=== PATIENT | male | born 1940 | race Caucasian/White ===

== ENCOUNTER → 2016-06-03 | Outpatient (CLI) | payer OTHER ==
[~2016-06-03] MED LIST: ALPPOPS5 OPL; ASPCH81X PO; BIMA0.01 OPL; DOFE500C PO; DXY100 PO; EYE INJECTION INJ; FLUT0.15 NAE; HYDR-5688 PO; MULT-190 PO; MULT60CA PO; OMEP40CA41 PO; SILD1TAB11 PO; SIMV20TA2 PO; TIMO0.2530 OPL
[2016-06-03 13:03] LABS: BASO % 0.4 %; BASO ABS # 0.03 K/uL (0-0.2); COMPLETE YES; EOS % 3.8 %; HEMATOCRIT 46.5 % (42-52); IG% 0.1 %; LYMPH % 28.2 %; LYMPH ABS # 2.39 K/uL (1.2-3.4); MEAN CELL VOLUME 89.4 fL (80-100); MEAN CORPUSCULAR HEMOGLOBIN 29.8 pg (25-34); MEAN CORPUSCULAR HGB CONC 33.3 g/dl (32-36); MONO % 11.4 %; NEUT % 56.1 %; PLATELET COUNT 254 K/uL (130-400); WHITE BLOOD COUNT 8.48 K/uL (4.8-10.8)
[2016-06-03 13:21] LABS: ALT/SGPT 21 U/L (12-78); AST/SGOT 13 U/L (15-37); BLOOD UREA NITROGEN 17 mg/dl (7-18); BUN/CREATININE RATIO 17.5 (10-20); CALCIUM 9.3 mg/dl (8.5-10.1); CARBON DIOXIDE 34 mmol/L (21-32); CHLORIDE 102 mmol/L (98-107); CREATININE 0.98 mg/dl (0.60-1.40); GLUCOSE 102 mg/dl (70-99); POTASSIUM 4.4 mmol/L (3.5-5.1); SODIUM 141 mmol/L (136-145)
[2016-06-03 13:24] LABS: ALB/GLOB RATIO 1.1 (0.9-2); ALKALINE PHOSPHATASE 60 U/L (45-117); CHOLESTEROL 169 mg/dl (0-200); CHOLESTEROL/HDL RATIO 3.4; HDL CHOLESTEROL 49 mg/dl; LDL CHOLESTEROL CALCULATED 94 mg/dl; TRIGLYCERIDES 129 mg/dl (0-150); VERY LOW DENSITY LIPOPROT CALC 26 mg/dl
== END | disposition home or self-care (01) ==
LOC: C.LABPVFM 07:57
PROVIDERS: ATTEND Family Medicine
DX: E78.5 Hyperlipidemia, unspecified (principal); I48.0 Paroxysmal atrial fibrillation

== ENCOUNTER → 2016-08-08 | Day surgery (SDC) | payer OTHER ==
[2016-07-28 08:08] VITALS: Ht 188 cm; Wt 93.2 kg
[~2016-08-08] VITALS: Ht 188 cm; Wt 93.2 kg
[~2016-08-08] MED LIST changes: +ATROPINE SULFATE 0.1 MG/ML 5ML SYR IV PRN; +BUPIVACAINE 0.5 % 5 MG/1 ML PF 10ML VIAL ONE; +CEFAZOLIN 2000 MG/60 ML D5W IV SCH; +DEXAMETHASONE SOD INJ 4 MG/ML VIAL ONE; -DXY100 PO; +FENTANYL CITRATE INJ 50 MCG/1 ML 2 ML VIAL IV PRN; +FENTANYL CITRATE INJ 50 MCG/1 ML 2 ML VIAL ONE; +LACTATED RINGER'S 1000ML 1,000 ML IV SCH; +LIDOCAINE HCL 1% 20 ML VIAL ONE; +LIDOCAINE HCL 2% 2 ML VIAL (20MG/ML) ONE; +MELO15TA4 PO; +MIDAZOLAM HCL 1 MG/ML 2ML VIAL ONE; -MULT-190 PO; +ONDANSETRON INJ 2 MG/ML 2 ML VIAL IV PRN; +ONDANSETRON INJ 2 MG/ML 2 ML VIAL ONE; +OXYCODONE/ACETAMINOPHEN 5-325 TAB PO PRN; +PROPOFOL IV EMULSION 10 MG/ML 20 ML VIAL IV ONE; -SILD1TAB11 PO; +SODIUM CHLORIDE 0.9% 1000ML 1,000 ML IV SCH; -TIMO0.2530 OPL; +TIMO4SOL2 OPL
--- NOTE | 2016-08-08 07:21 | History & Physical Bridge - [place] ---
H&P Re-Evaluation Bridge Note: I have examined the patient, reviewed the History & Physical and in the interval since the performance of the History & Physical I have noted the following changes of clinical significance: No changes noted
--- NOTE | 2016-08-08 08:33 | [facility] Post Operative Brief Note ---
Immediate Operative Summary Operative Date Aug 08, 2016. Pre-Operative Diagnosis Right Long Finger Trigger Finger Post-Operative Diagnosis Same Procedure(s) Performed Right Long Finger Trigger Finger Release Surgeon Dr. Daley Manager Of Data Surgeon(s) Stephen Buenrostro PA-C Estimated Blood Loss None Findings ABOVE Specimens None Anesthesia LOCAL IV SEDATION Complication(s) None Disposition
[2016-08-08 08:34] VITALS: TEMP 36.3
--- NOTE | 2016-08-08 08:37 | Discharge Instructions-SurgCtr ---
Discharge Instructions Date of Service Aug 08, 2016. Visit Reason for Visit: Triggering Of Digit, Right Long Finger Discharge Discharge Diagnosis / Problem: SAME ABOVE Discharge Goals Goal(s): Decrease discomfort, Improve function Activity Recommendations Activity Limitations: as noted below Lifting Limitations: gradually increase as tolerated Exercise/Sports Limitations: gradually increase as tolerated Shower/Bathe: may shower/bathe in 3 days Anesthesia . Post Anesthesia Instructions: If you have had General Anesthesia or IV Sedation: * Do not drive today. * Resume driving when surgeon permits. * Do not make important decisions or sign legal documents today. * Call surgeon for: 1. Temperature elevations greater than 101 degrees F. 2. Uncontrollable pain. 3. Excessive bleeding. 4. Persistent nausea and vomiting. 5. Medication intolerance (nausea, vomiting or rash). * For nausea and vomiting use only clear liquids such as: tea, soda, bouillon until nausea subsides, then gradually increase diet as tolerated. * If you have any concerns or questions, call your surgeon's office. If physician is unavailable and it is an emergency, call 911 or go to the nearest emergency room. . Instructions / Follow-Up Instructions / Follow-Up MEDICATIONS: * Resume previous medications unless instructed otherwise by your surgeon. * Always take pain medication on a full stomach or with food to avoid upset stomach. * Do not drink alcohol or drive while taking narcotics. * Ibuprofen or Tylenol may be taken if narcotic not needed. SPECIAL CARE INSTRUCTIONS: __ None _X_ Keep extremity elevated and iced x 48 hours; apply ice 20-30 minutes 8-10 times/day. May remove at night. __ Sling __24 hrs/day __ Remove at night __ Shoulder Immobilizer __ 24 hrs/day __ Remove at night _X_ Dressing __ Maintain until seen in office, may shower with plastic over site _X_ Remove dressings in 24-48 hours and then may shower _X_ Cover incisions with band-aids after showering __ Do not remove steri-strips Call physician if chills or temperature rises above 102 degrees or pain unrelieved by prescribed pain medications at . . Diet Recommendations Home Diet: resume previous diet Procedures Procedures Performed: Right Long Finger Trigger Finger Release Pending Studies Studies pending at discharge: no Medical Emergencies . Who to Call and When: Medical Emergencies: If at any time you feel your situation is an emergency, please call 911 immediately. . Non-Emergent Contact Non-Emergency issues call your: Primary Care Provider . . "Provider Documentation" section prepared by Masoud Buenrostro.
--- NOTE | 2016-08-08 08:55 | Anesthesia Progress Nt - [facility] ---
Anesthesia Post Op Note Date & Time Aug 08, 2016 at 08:54 Vital Signs Pain Intensity: 0 Vital Signs Past 12 Hours Date Time Temp Pulse Resp B/P Pulse Ox O2 Delivery O2 Flow Rate FiO2 08/08/16 08:34 36.3 49 16 105/68 97 Room Air 08/08/16 07:25 36.4 49 95 112/72 95 Room Air Notes Mental Status: alert / awake / arousable, participated in evaluation Pt Amnestic to Procedure: Yes Nausea / Vomiting: adequately controlled Pain: adequately controlled Airway Patency, RR, SpO2: stable & adequate BP & HR: stable & adequate Hydration State: stable & adequate Anesthetic Complications: no major complications apparent
[2016-08-08 09:03] VITALS: BP 107/66; PULSE 48; O2SAT 97
--- NOTE | 2016-08-08 10:46 | OPERATIVE REPORT ---
DATE OF OPERATION: 08/08/2016 PREOPERATIVE DIAGNOSIS: Right long trigger finger. POSTOPERATIVE DIAGNOSIS: Same. PROCEDURE: Release A1 fabiana, right long finger. SURGEON: Yonatan Daley MD SECURITY INCIDENT RESPONSE ENGINEER: Masoud Buenrostro PA-C ANESTHESIOLOGIST: Fabio Nash MD ANESTHESIA: Local with IV sedation. DRAINS: None. COMPLICATIONS: None. CONDITION: The patient tolerated the procedure well and returned to the recovery room in apparent satisfactory condition. INDICATIONS FOR SURGERY: Weston is a 76-year-old male who has had trigger fingering of multiple fingers, but his right long has been refractory to conservative care. He has had some injections there and elected to go ahead and proceed with surgery. Procedure, expected outcomes, side effects, and risks were all explained in detail. DESCRIPTION OF PROCEDURE: The patient was taken to the OR at which time he was placed supine on the operating table, given IV sedation. The right hand was prepped and draped in usual sterile fashion for surgery. We infiltrated the anticipated incision site with 1% Xylocaine and then we put a forearm tourniquet up to 250 mmHg. We made a transverse incision over the A1 fabiana, and with loupe magnification, we dissected down and divided the A1 fabiana. He had fluid in the fabiana system. The tendon was frayed some also. We irrigated this and the finger no longer triggering. The wound then was closed with interrupted 4-0 nylon sutures. Marcaine without epinephrine was placed in the skin edges, placed sterile dressing of Xeroform, 4 x 4, soft roll and Coban and returned to recovery in apparent satisfactory condition. I attest to the content of the Intraoperative Record and any orders documented therein. Any exceptions are noted below. MTDD
== END | disposition home or self-care (01) ==
LOC: X.SURG 07:05
PROVIDERS: ATTEND Orthopaedic Surgery
DX: M65.331 Trigger finger, right middle finger (principal); I48.91 Unspecified atrial fibrillation

== ENCOUNTER → 2016-09-22 | Outpatient (CLI) | payer OTHER ==
[~2016-09-22] MED LIST changes: -ATROPINE SULFATE 0.1 MG/ML 5ML SYR IV PRN; -BUPIVACAINE 0.5 % 5 MG/1 ML PF 10ML VIAL ONE; -CEFAZOLIN 2000 MG/60 ML D5W IV SCH; -DEXAMETHASONE SOD INJ 4 MG/ML VIAL ONE; -FENTANYL CITRATE INJ 50 MCG/1 ML 2 ML VIAL IV PRN; -FENTANYL CITRATE INJ 50 MCG/1 ML 2 ML VIAL ONE; -LACTATED RINGER'S 1000ML 1,000 ML IV SCH; -LIDOCAINE HCL 1% 20 ML VIAL ONE; -LIDOCAINE HCL 2% 2 ML VIAL (20MG/ML) ONE; -MIDAZOLAM HCL 1 MG/ML 2ML VIAL ONE; -ONDANSETRON INJ 2 MG/ML 2 ML VIAL IV PRN; -ONDANSETRON INJ 2 MG/ML 2 ML VIAL ONE; -OXYCODONE/ACETAMINOPHEN 5-325 TAB PO PRN; -PROPOFOL IV EMULSION 10 MG/ML 20 ML VIAL IV ONE; -SODIUM CHLORIDE 0.9% 1000ML 1,000 ML IV SCH
[2016-09-22 15:21] LABS: ALT/SGPT 23 U/L (12-78); AST/SGOT 17 U/L (15-37); BLOOD UREA NITROGEN 19 mg/dl (7-18); BUN/CREATININE RATIO 19.3 (10-20); CALCIUM 9.2 mg/dl (8.5-10.1); CARBON DIOXIDE 29 mmol/L (21-32); CHLORIDE 104 mmol/L (98-107); CREATININE 0.98 mg/dl (0.60-1.40); GLUCOSE 110 mg/dl (70-99); POTASSIUM 4.3 mmol/L (3.5-5.1); SODIUM 139 mmol/L (136-145); TRIGLYCERIDES 119 mg/dl (0-150); VERY LOW DENSITY LIPOPROT CALC 24 mg/dl
[2016-09-22 15:24] LABS: ALB/GLOB RATIO 1.2 (0.9-2); ALKALINE PHOSPHATASE 66 U/L (45-117); CHOLESTEROL 174 mg/dl (0-200); CHOLESTEROL/HDL RATIO 3.8; HDL CHOLESTEROL 46 mg/dl; LDL CHOLESTEROL CALCULATED 104 mg/dl
== END | disposition home or self-care (01) ==
LOC: C.LABPVFM 08:05
PROVIDERS: ATTEND Family Medicine
DX: I48.92 Unspecified atrial flutter (principal); E78.5 Hyperlipidemia, unspecified; R06.09 Other forms of dyspnea; M54.5 Low back pain; K22.70 Barrett's esophagus without dysplasia; I48.0 Paroxysmal atrial fibrillation

== ENCOUNTER → 2016-11-13 | Outpatient (CLI) | payer OTHER ==
[~2016-11-13] MED LIST changes: -FLUT0.15 NAE; -MELO15TA4 PO; +TIMO0.2530 OPL; -TIMO4SOL2 OPL
[2016-11-13 13:07] LABS: BLOOD UREA NITROGEN 21 mg/dl (7-18); BUN/CREATININE RATIO 23.1 (10-20); CALCIUM 9.2 mg/dl (8.5-10.1); CARBON DIOXIDE 29 mmol/L (21-32); CHLORIDE 106 mmol/L (98-107); CREATININE 0.92 mg/dl (0.60-1.40); GLUCOSE 97 mg/dl (70-99); POTASSIUM 4.1 mmol/L (3.5-5.1); SODIUM 141 mmol/L (136-145)
== END | disposition home or self-care (01) ==
LOC: C.LABPVFM 07:31
PROVIDERS: ATTEND Family Medicine
DX: Z01.818 Encounter for other preprocedural examination (principal)

== ENCOUNTER → 2017-04-17 | Day surgery (SDC) | payer OTHER ==
[2017-03-27 07:40] VITALS: Ht 188 cm; Wt 93.2 kg
[~2017-04-17] VITALS: Ht 188 cm; Wt 93.2 kg
[~2017-04-17] MED LIST changes: +500ML BSS 0.3ML EPI 1:1000PF IRRIG ONE; +ACETAMINOPHEN 325 MG TAB PO PRN; -ALPPOPS5 OPL; +AMVISC PLUS 0.8ML SYRINGE INT OCU ONE; +ATROPINE SULFATE 0.1 MG/ML 5ML SYR IV PRN; -BIMA0.01 OPL; +BSS FLUSH ONE; -EYE INJECTION INJ; +EpHEDrine SULFATE INJ 50 MG/ML AMP IV PRN; +EpINEphrine INJ 1MG/ML AMP 1 MG/ML AMP ONE; +FLUT0.15 NAE; -HYDR-5688 PO; +LACTATED RINGER'S 1000ML 500 ML IV SCH; +LIDOCAINE 3.5% OPH GEL PER APPLICATION CHARGE ONE; +LIDOCAINE HCL 1% MPF 2 ML VIAL ONE; +MELO15TA4 PO; +MIDAZOLAM HCL 1 MG/ML 2ML VIAL ONE; +OCUCOAT 1 ML SOLN IO ONE; +POVIDONE-IODINE OP SOLN 30 ML BTL ONE; +PROPARACAINE 0.5% OP SOLN PER DROP CHARGE OPL SCH; -TIMO0.2530 OPL; +TOBRAMYCIN/DEXAMETHASONE OPH OINT PER APPLN CHARGE ONE
[2017-04-17] MEDS: PHENYLEPHRINE HCL 2.5% OP SOLN PER DROP CHARGE OPL SCH ×2 (10:04→10:10)
[2017-04-17] MEDS: TROPICAMIDE 1% OP SOLN PER DROP CHARGE OPL SCH ×2 (10:05→10:11)
[2017-04-17] MEDS: CYCLOPENTOLATE HCL 1% OP SOLN PER DROP CHARGE OPL SCH ×2 (10:06→10:12)
[2017-04-17] MEDS: KETOROLAC 0.5% OP SOLN PER DROP CHARGE OPL SCH ×2 (10:07→10:13)
[2017-04-17] MEDS: GATIFLOXACIN OP SOLN PER DROP CHARGE OPL SCH ×2 (10:08→10:18)
--- NOTE | 2017-04-17 10:35 | History & Physical Bridge - [place] ---
H&P Re-Evaluation Bridge Note: I have examined the patient, reviewed the History & Physical and in the interval since the performance of the History & Physical I have noted the following changes of clinical significance: Diagnosis: Left Cataract Procedure: Left Cataract Removal with Lens Implant No changes noted
--- NOTE | 2017-04-17 11:09 | Discharge Instructions-SurgCtr ---
Discharge Instructions Date of Service Apr 17, 2017. Visit Reason for Visit: Cataract Left Eye Discharge Discharge Diagnosis / Problem: cataract Discharge Goals Goal(s): Improve function Activity Recommendations Activity Limitations: per Instructions/Follow-up section Anesthesia . Post Anesthesia Instructions: If you have had General Anesthesia or IV Sedation: * Do not drive today. * Resume driving when surgeon permits. * Do not make important decisions or sign legal documents today. * Call surgeon for: 1. Temperature elevations greater than 101 degrees F. 2. Uncontrollable pain. 3. Excessive bleeding. 4. Persistent nausea and vomiting. 5. Medication intolerance (nausea, vomiting or rash). * For nausea and vomiting use only clear liquids such as: tea, soda, bouillon until nausea subsides, then gradually increase diet as tolerated. * If you have any concerns or questions, call your surgeon's office. If physician is unavailable and it is an emergency, call 911 or go to the nearest emergency room. . Diet Recommendations Home Diet: resume previous diet Procedures Procedures Performed: Left Cataract Phacoemulsification With Intraocular Lens Implant Pending Studies Studies pending at discharge: no Medical Emergencies . Who to Call and When: Medical Emergencies: If at any time you feel your situation is an emergency, please call 911 immediately. . Non-Emergent Contact Non-Emergency issues call your: Fuel Handler . . "Provider Documentation" section prepared by Colt Salgado. .
--- NOTE | 2017-04-17 11:10 | [facility] Operative Report ---
Operative Report Date of Service Apr 17, 2017. Operative Report 1. PREOPERATIVE DIAGNOSIS: Cataract of the left eye. 2. POSTOPERATIVE DIAGNOSIS: Same. 3. PROCEDURE: Phacoemulsification with intraocular lens implantation of the left eye. SURGEON: Dr. Colt Salgado. ANESTHESIA: Topical Lidocaine gel, 1% Non- Preserved intracameral Lidocaine, and monitored intravenous sedation. INDICATIONS FOR THE PROCEDURE: The patient is a 76 - year-old male with a history of cataract of the left eye causing significant visual impairment. The details of the proposed procedure were explained to the patient who asked appropriate questions and following discussion of all risks, benefits and alternatives agreed to have the procedure done. 4. OPERATION AND FINDINGS: DESCRIPTION OF PROCEDURE: After informed consent was obtained, the patient was brought to the Operating Room at the [facility]. The patient was placed in a supine position and then the left eye was prepped and draped in the usual sterile fashion for intraocular surgery. A drop of topical Lidocaine gel was placed in the operative eye. A wire lid speculum was then placed in the fornices. A corneal paracentesis was then created temporally. The Non-Preserved Lidocaine was then instilled into the anterior chamber. The anterior chamber was then pressurized with viscoelastic. A 2.0 mm clear corneal incision was then created temporally. A cystotome was inserted into the anterior chamber and used to create a tear in the anterior lens capsule. This capsular tear was then used to create a small flap and the flap was dragged in a counterclockwise direction in order to create a continuous curvilinear capsulorrhexis. Hydrodissection was accomplished with balanced salt solution. Phacoemulsification of the lens nucleus was then performed in a standard [id number] technique. The phaco time was 39 seconds with an average power of 16 %. The remaining cortical material was removed using irrigation aspiration. The capsular bag was then filled with viscoelastic. A Bausch [employer] Lomb MX60 +18.5 diopters lens was then loaded into the injector and injected into the capsular bag. The remaining viscoelastic was removed with the irrigation aspiration handpiece. The wound was hydrated and then checked and found to be watertight. The intraocular pressure was checked and found to be adequate. The wire lid speculum was removed and the patient's face was cleaned and dried. TobraDex ointment was placed in the inferior fornix. The patient was discharged to the Recovery Room having tolerated the procedure well. There were no complications. The patient will be seen tomorrow in the office for follow-up. I attest to the content of the Intraoperative Record and any orders documented therein. Any exceptions are noted below.
[2017-04-17 11:14] VITALS: TEMP 36.5
--- NOTE | 2017-04-17 11:19 | Anesthesiology Progress Note ---
Anesthesia Post Op Note Date & Time Apr 17, 2017 at 11:18 Vital Signs Pain Intensity: 0 Vital Signs Past 12 Hours Date Time Temp Pulse Resp B/P (MAP) Pulse Ox O2 Delivery O2 Flow Rate FiO2 04/17/17 11:14 36.5 46 16 109/71 (84) 97 Room Air 04/17/17 09:57 36.2 57 16 127/72 (90) 95 Room Air Notes Mental Status: alert / awake / arousable, participated in evaluation Nausea / Vomiting: adequately controlled Pain: adequately controlled Airway Patency, RR, SpO2: stable & adequate BP & HR: stable & adequate Hydration State: stable & adequate Anesthetic Complications: no major complications apparent
[2017-04-17 11:34] VITALS: BP 110/70; PULSE 53; O2SAT 96
== END | disposition home or self-care (01) ==
LOC: X.SURG 09:36
PROVIDERS: ATTEND Ophthalmology
DX: H26.9 Unspecified cataract (principal); E78.5 Hyperlipidemia, unspecified; I48.0 Paroxysmal atrial fibrillation; I48.92 Unspecified atrial flutter; K21.0 Gastro-esophageal reflux disease with esophagitis; Z79.82 Long term (current) use of aspirin; Z79.899 Other long term (current) drug therapy

== ENCOUNTER → 2017-04-20 | Outpatient (CLI) | payer OTHER ==
[~2017-04-20] MED LIST changes: -500ML BSS 0.3ML EPI 1:1000PF IRRIG ONE; -ACETAMINOPHEN 325 MG TAB PO PRN; -AMVISC PLUS 0.8ML SYRINGE INT OCU ONE; -ATROPINE SULFATE 0.1 MG/ML 5ML SYR IV PRN; -BSS FLUSH ONE; -EpHEDrine SULFATE INJ 50 MG/ML AMP IV PRN; -EpINEphrine INJ 1MG/ML AMP 1 MG/ML AMP ONE; -LACTATED RINGER'S 1000ML 500 ML IV SCH; -LIDOCAINE 3.5% OPH GEL PER APPLICATION CHARGE ONE; -LIDOCAINE HCL 1% MPF 2 ML VIAL ONE; -MIDAZOLAM HCL 1 MG/ML 2ML VIAL ONE; -OCUCOAT 1 ML SOLN IO ONE; -POVIDONE-IODINE OP SOLN 30 ML BTL ONE; -PROPARACAINE 0.5% OP SOLN PER DROP CHARGE OPL SCH; -TOBRAMYCIN/DEXAMETHASONE OPH OINT PER APPLN CHARGE ONE
--- NOTE | 2017-04-20 15:38 | DIAGNOSTIC IMAGING REPORT ---
CERVICAL SPINE 2 OR 3 VIEWS HISTORY: Pain Cervicalgia COMPARISON: None. FINDINGS: Moderate reversal of the normal cervical curvature. No evidence for compression deformity. Degenerative disc change most prominent at C5-C6. No evidence for compression deformity. C1-C2 complex is intact. Prevertebral soft tissues are unremarkable. There is no fracture. No subluxation. Prevertebral soft tissues and the atlantodens interval are intact. IMPRESSION: No acute process. Moderate degenerative change. Muscle spasm. The above report was generated using voice recognition software. It may contain grammatical, syntax or spelling errors. Electronically signed by: Darci Enriquez M.D. 04/20/2017 3:36 PM Dictated Date/Time: 04/20/2017 3:35 PM
== END | disposition home or self-care (01) ==
LOC: C.RADPV 15:13
PROVIDERS: ATTEND Family Medicine Adult Medicine
DX: M54.2 Cervicalgia (principal)

== ENCOUNTER → 2017-05-15 | Day surgery (SDC) | payer OTHER ==
[2017-04-26 13:21] VITALS: Ht 188 cm; Wt 93.2 kg
[~2017-05-15] VITALS: Ht 188 cm; Wt 93.2 kg
[~2017-05-15] MED LIST changes: +500ML BSS 0.3ML EPI 1:1000PF IRRIG ONE; +ACETAMINOPHEN 325 MG TAB PO PRN; +AMVISC PLUS 0.8ML SYRINGE INT OCU ONE; +ATROPINE SULFATE 0.1 MG/ML 5ML SYR IV PRN; +BSS FLUSH ONE; +EpHEDrine SULFATE INJ 50 MG/ML AMP IV PRN; +EpINEphrine INJ 1MG/ML AMP 1 MG/ML AMP ONE; +LACTATED RINGER'S 1000ML 500 ML IV SCH; +LIDOCAINE 3.5% OPH GEL PER APPLICATION CHARGE ONE; +LIDOCAINE HCL 1% MPF 2 ML VIAL ONE; +MELO-84 PO; -MELO15TA4 PO; +MIDAZOLAM HCL 1 MG/ML 2ML VIAL ONE; +OCUCOAT 1 ML SOLN IO ONE; +POVIDONE-IODINE OP SOLN 30 ML BTL ONE; +PROPARACAINE 0.5% OP SOLN PER DROP CHARGE OPR SCH; +PSYL48.59; +TOBRAMYCIN/DEXAMETHASONE OPH OINT PER APPLN CHARGE ONE
[2017-05-15] MEDS: PHENYLEPHRINE HCL 2.5% OP SOLN PER DROP CHARGE OPR SCH ×2 (09:03→09:08)
[2017-05-15] MEDS: TROPICAMIDE 1% OP SOLN PER DROP CHARGE OPR SCH ×2 (09:04→09:09)
[2017-05-15] MEDS: CYCLOPENTOLATE HCL 1% OP SOLN PER DROP CHARGE OPR SCH ×2 (09:05→09:10)
[2017-05-15] MEDS: KETOROLAC 0.5% OP SOLN PER DROP CHARGE OPR SCH ×2 (09:06→09:11)
[2017-05-15] MEDS: GATIFLOXACIN OP SOLN PER DROP CHARGE OPR SCH ×2 (09:07→09:17)
--- NOTE | 2017-05-15 10:11 | Discharge Instructions-SurgCtr ---
Discharge Instructions Date of Service May 15, 2017. Visit Reason for Visit: Right Cataract Discharge Discharge Diagnosis / Problem: cataract Discharge Goals Goal(s): Improve function Activity Recommendations Activity Limitations: per Instructions/Follow-up section Anesthesia . Post Anesthesia Instructions: If you have had General Anesthesia or IV Sedation: * Do not drive today. * Resume driving when surgeon permits. * Do not make important decisions or sign legal documents today. * Call surgeon for: 1. Temperature elevations greater than 101 degrees F. 2. Uncontrollable pain. 3. Excessive bleeding. 4. Persistent nausea and vomiting. 5. Medication intolerance (nausea, vomiting or rash). * For nausea and vomiting use only clear liquids such as: tea, soda, bouillon until nausea subsides, then gradually increase diet as tolerated. * If you have any concerns or questions, call your surgeon's office. If physician is unavailable and it is an emergency, call 911 or go to the nearest emergency room. . Diet Recommendations Home Diet: resume previous diet Procedures Procedures Performed: Right Cataract Phacoemulsification With Intraocular Lens Implant Pending Studies Studies pending at discharge: no Medical Emergencies . Who to Call and When: Medical Emergencies: If at any time you feel your situation is an emergency, please call 911 immediately. . Non-Emergent Contact Non-Emergency issues call your: Supply Teacher . . "Provider Documentation" section prepared by Colt Salgado. .
--- NOTE | 2017-05-15 10:12 | [facility] Operative Report ---
Operative Report Date of Service May 15, 2017. Operative Report 1. PREOPERATIVE DIAGNOSIS: Cataract of the right eye. 2. POSTOPERATIVE DIAGNOSIS: Same. 3. PROCEDURE: Phacoemulsification with intraocular lens implantation of the right eye. SURGEON: Dr. Colt Salgado. ANESTHESIA: Topical Lidocaine gel, 1% Non- Preserved intracameral Lidocaine, and monitored intravenous sedation. INDICATIONS FOR THE PROCEDURE: The patient is a 76 - year-old male with a history of cataract of the right eye causing significant visual impairment. The details of the proposed procedure were explained to the patient who asked appropriate questions and following discussion of all risks, benefits and alternatives agreed to have the procedure done. 4. OPERATION AND FINDINGS: DESCRIPTION OF PROCEDURE: After informed consent was obtained, the patient was brought to the Operating Room at the [facility]. The patient was placed in a supine position and then the right eye was prepped and draped in the usual sterile fashion for intraocular surgery. A drop of topical Lidocaine gel was placed in the operative eye. A wire lid speculum was then placed in the fornices. A corneal paracentesis was then created temporally. The Non-Preserved Lidocaine was then instilled into the anterior chamber. The anterior chamber was then pressurized with viscoelastic. A 2.0 mm clear corneal incision was then created temporally. A cystotome was inserted into the anterior chamber and used to create a tear in the anterior lens capsule. This capsular tear was then used to create a small flap and the flap was dragged in a counterclockwise direction in order to create a continuous curvilinear capsulorrhexis. Hydrodissection was accomplished with balanced salt solution. Phacoemulsification of the lens nucleus was then performed in a standard urjeva-uan-[id number] technique. The phaco time was 27 seconds with an average power of 12 %. The remaining cortical material was removed using irrigation aspiration. The capsular bag was then filled with viscoelastic. A Bausch & Lomb MX60 +18.5 diopters lens was then loaded into the injector and injected into the capsular bag. The remaining viscoelastic was removed with the irrigation aspiration handpiece. The wound was hydrated and then checked and found to be watertight. The intraocular pressure was checked and found to be adequate. The wire lid speculum was removed and the patient's face was cleaned and dried. TobraDex ointment was placed in the inferior fornix. The patient was discharged to the Recovery Room having tolerated the procedure well. There were no complications. The patient will be seen tomorrow in the office for follow-up. I attest to the content of the Intraoperative Record and any orders documented therein. Any exceptions are noted below.
--- NOTE | 2017-05-15 10:23 | Anesthesiology Progress Note ---
Anesthesia Post Op Note Date & Time May 15, 2017 at 10:23 Vital Signs Pain Intensity: 0 Vital Signs Past 12 Hours Date Time Temp Pulse Resp B/P (MAP) Pulse Ox O2 Delivery O2 Flow Rate FiO2 05/15/17 10:15 36.5 45 16 112/69 (83) 96 Room Air 05/15/17 08:53 36.5 54 16 124/74 (91) 99 Room Air Notes Mental Status: alert / awake / arousable, participated in evaluation Nausea / Vomiting: adequately controlled Pain: adequately controlled Airway Patency, RR, SpO2: stable & adequate BP & HR: stable & adequate Hydration State: stable & adequate Anesthetic Complications: no major complications apparent
[2017-05-15 10:41] VITALS: BP 120/73; PULSE 48; TEMP 36.5; O2SAT 96
== END | disposition home or self-care (01) ==
LOC: X.SURG 08:43
PROVIDERS: ATTEND Ophthalmology
DX: H26.9 Unspecified cataract (principal); E78.5 Hyperlipidemia, unspecified; Z79.82 Long term (current) use of aspirin; Z90.79 Acquired absence of other genital organ(s); Z90.89 Acquired absence of other organs; Z98.42 Cataract extraction status, left eye; K22.70 Barrett's esophagus without dysplasia; Z85.46 Personal history of malignant neoplasm of prostate

== ENCOUNTER → 2017-05-18 | Outpatient (CLI) | payer OTHER ==
[~2017-05-18] MED LIST changes: -500ML BSS 0.3ML EPI 1:1000PF IRRIG ONE; -ACETAMINOPHEN 325 MG TAB PO PRN; -AMVISC PLUS 0.8ML SYRINGE INT OCU ONE; -ATROPINE SULFATE 0.1 MG/ML 5ML SYR IV PRN; -BSS FLUSH ONE; -EpHEDrine SULFATE INJ 50 MG/ML AMP IV PRN; -EpINEphrine INJ 1MG/ML AMP 1 MG/ML AMP ONE; -LACTATED RINGER'S 1000ML 500 ML IV SCH; -LIDOCAINE 3.5% OPH GEL PER APPLICATION CHARGE ONE; -LIDOCAINE HCL 1% MPF 2 ML VIAL ONE; -MELO-84 PO; +MELO15TA4 PO; -MIDAZOLAM HCL 1 MG/ML 2ML VIAL ONE; -OCUCOAT 1 ML SOLN IO ONE; -POVIDONE-IODINE OP SOLN 30 ML BTL ONE; -PROPARACAINE 0.5% OP SOLN PER DROP CHARGE OPR SCH; -PSYL48.59; -TOBRAMYCIN/DEXAMETHASONE OPH OINT PER APPLN CHARGE ONE
[2017-05-18 13:08] LABS: ALBUMIN 3.8 gm/dl (3.4-5.0); ALT/SGPT 23 U/L (12-78); AST/SGOT 15 U/L (15-37); BLOOD UREA NITROGEN 20 mg/dl (7-18); CALCIUM 9.3 mg/dl (8.5-10.1); CARBON DIOXIDE 32 mmol/L (21-32); CREATININE 0.97 mg/dl (0.60-1.40); GLUCOSE 100 mg/dl (70-99); POTASSIUM 4.1 mmol/L (3.5-5.1); SODIUM 138 mmol/L (136-145)
[2017-05-18 13:12] LABS: ALKALINE PHOSPHATASE 59 U/L (45-117); CHOLESTEROL 165 mg/dl (0-200); LDL CHOLESTEROL CALCULATED 91 mg/dl; TOTAL PROTEIN 7.6 gm/dl (6.4-8.2)
== END | disposition home or self-care (01) ==
LOC: C.LABPVFM 07:44
PROVIDERS: ATTEND Family Medicine
DX: I48.0 Paroxysmal atrial fibrillation (principal); E78.5 Hyperlipidemia, unspecified; K21.0 Gastro-esophageal reflux disease with esophagitis; R73.01 Impaired fasting glucose

== ENCOUNTER → 2017-07-16 | Outpatient (CLI) | payer OTHER ==
[~2017-07-16] MED LIST changes: +MELO-84 PO; -MELO15TA4 PO
--- NOTE | 2017-07-16 10:37 | DIAGNOSTIC IMAGING REPORT ---
R SHOULDER MIN 2 VIEWS ROUTINE CLINICAL HISTORY: RIGHT SHOULDER INJURY PAIN COMPARISON: None. DISCUSSION: No acute proximal humeral fractures or dislocations are visualized. There is age-indeterminate irregularity the inferior scapular glenoid. IMPRESSION: 1. No proximal humeral fractures or dislocations identified 2. Age-indeterminate irregularity of the inferior scapular glenoid Electronically signed by: Victor Manuel Montes M.D. 07/16/2017 10:35 AM Dictated Date/Time: 07/16/2017 10:34 AM
== END | disposition home or self-care (01) ==
LOC: C.RADPV 10:20
PROVIDERS: ATTEND Family Medicine
DX: S49.91XA Unspecified injury of right shoulder and upper arm, initial encounter (principal); X58.XXXA Exposure to other specified factors, initial encounter

== ENCOUNTER → 2017-09-05 | Outpatient (CLI) | payer OTHER ==
[~2017-09-05] MED LIST changes: +GADAVIST IV PRN; -MELO-84 PO
--- NOTE | 2017-09-05 11:43 | DIAGNOSTIC IMAGING REPORT ---
ORBIT RADIOGRAPHS 3 VIEWS HISTORY: pre-MRI screening. COMPARISON: None. FINDINGS: There are no radiopaque foreign bodies identified within the orbits. IMPRESSION: No radiopaque foreign bodies identified within the orbits. Electronically signed by: Doug Nassar M.D. 09/05/2017 11:41 AM Dictated Date/Time: 09/05/2017 11:40 AM
--- NOTE | 2017-09-05 15:27 | DIAGNOSTIC IMAGING REPORT ---
PROSTATE MRI COMBO CLINICAL HISTORY: 77 years-old Male presenting with rising PSA status post prostatectomy.. TECHNIQUE: Multisequence, multiplanar MR imaging of the prostate was performed before and after the administration of intravenous contrast. Additional postprocessing was performed on a separate [employer] workstation. The patient was administered 9.5 cc of intravenous Gadavist. COMPARISON: None. FINDINGS: The patient is status post a prior prostatectomy. There is an 9 mm nodular asymmetry at the vesicourethral anastomosis, posteriorly. This demonstrates increased signal on diffusion-weighted images, but there is no corresponding area of diminished signal on the ADC map. . There is equivocal slight hypervascularity on the dynamic contrast enhanced images. Bladder: The bladder is trabeculated with several bladder diverticula. Bowel: There is colonic diverticulosis. Peritoneum: No free fluid in the pelvis. Lymph nodes: No lymphadenopathy in the visualized portion of the pelvis. Vasculature: Iliac vessels patent. Abdominal wall: Normal. Osseous structures: Normal bone marrow signal intensity. IMPRESSION: 1. Postsurgical changes of a prior prostatectomy 2. Indeterminate 9 mm nodular asymmetry of the vesicourethral anastomosis posteriorly. There is equivocal slight hypervascularity in the dynamic contrast-enhanced images. Although this area demonstrates increased signal on diffusion-weighted images, there is no corresponding area of diminished signal on the ADC map. 3. No evidence of pathologic adenopathy 4. No evidence of pathologic marrow replacement 5. Diverticulosis 6. Trabeculated bladder with bladder diverticula Electronically signed by: Victor Manuel Montes M.D. 09/05/2017 3:25 PM Dictated Date/Time: 09/05/2017 1:16 PM
== END | disposition home or self-care (01) ==
LOC: C.MRIBC 10:59
PROVIDERS: ATTEND Radiology Radiation Oncology
DX: C61 Malignant neoplasm of prostate (principal); K57.90 Diverticulosis of intestine, part unspecified, without perforation or abscess without bleeding; N32.89 Other specified disorders of bladder

== ENCOUNTER → 2017-12-07 | Outpatient (CLI) | payer OTHER ==
[~2017-12-07] MED LIST changes: -GADAVIST IV PRN; +PSYL48.59
== END | disposition home or self-care (01) ==
LOC: C.LAB1850 14:02
PROVIDERS: ATTEND Radiology Radiation Oncology
DX: C61 Malignant neoplasm of prostate (principal)

== ENCOUNTER → 2017-12-11 | Outpatient (CLI) | payer OTHER ==
[2017-12-11 14:46] VITALS: BP 114/69; PULSE 59; TEMP 36.4; O2SAT 96
--- NOTE | 2017-12-11 15:39 | Radiation Oncology Follow-Up ---
Radiation Oncology Follow-Up Date of Visit Dec 11, 2017. Reason For Visit One-month follow-up and cancer survivorship care plan Radiation Completion Date 11/08/17 Diagnosis (1) Prostate cancer Status: Resolved Onset Date: 11/04/2012 Location: Both lobes of the prostate Histology Subtype: Adenocarcinoma Permanent Comment: DIAGNOSIS: Prostate, adenocarcinoma, Status post radical prostatectomy July 02, 1996 Joan 3 + 4, [id number], group IIA positive anterior urethral margin, perineural invasion present Rise in PSA to 0.937, Initially seen in consultation August 31, 2015 Patient did not purse radiation Continue rising PSA PSA July 25, 2017 at 4.59 Hormone suppression was not given Status post completion of radiation therapy November 08, 2017. He received 7560 cGy utilizing volumetric modulated radiation therapy. Last Edited By: Marcela Bryant on Nov 16, 2017 12:53 History of Present Illness Mr. Hoffmann was initially diagnosed with prostate cancer in 1996. The patient underwent a biopsy of the prostate gland which revealed [place] 3+4 disease in the right base. The patient subsequently underwent a radical prostatectomy on 07/02/1996 which revealed prostate adenocarcinoma Joan 3+4. There was no evidence of any seminal vesicle invasion or extraprostatic extension however the pathology report did mention a positive anterior urethral margin as well as perineural invasion. Both obturator lymph nodes that were resected bilaterally were negative. The patient did relatively well following surgery and was able to regain incontinence. He did undergo follow-up PSAs and was initially undetectable however the PSA did begin to rise in 2003 to 0.13. The PSA did continue to rise and the most recent PSA was 0.937 today. Previously, the PSA was 0.927 on 06/15/2015. The patient is currently asymptomatic. Dr. Kebede is following the patient and has so far recommended observation. She did recommend a discussion for consideration of salvage radiation therapy. Patient was initially seen on August 31, 2015. He had a rise in PSA. Treatment of salvage radiation was discussed. He made the decision to continue with active surveillance and recheck PSAs. On August 31, 2015 PSA had been found to be 0.937. On February 03, 2016 the PSA was 1.12. PSA August 03, 2016 was 1.41. PSA on July 18, 2017 was 4.62. This was repeated July 25, 2017 and the results were 4.59. With these findings the patient was advised to follow-up with radiation oncology. He feels that his urinary status is stable. He gave an AUA score of 10. He had a CT of the abdomen and pelvis as well as bone scan as part of his follow-up. There is no evidence of metastatic disease. He had additional plain films to review areas seen on the bone scan and those showed no obvious metastatic disease. With the continued rise in PSA the patient made a decision to go forward with salvage radiation therapy. He completed radiation therapy November 08, 2017. He received 7560 cGy utilizing volumetric modulated radiation therapy. Interim History He has been doing well over the past month. He feels that his urinary status has returned 2 his pretreatment level. He gave an AUA score of 15. At the end of treatment he had been giving an AUA score of 28. He has a used a score of 15 prior to starting radiation. He completed and expanded prostate cancer index composite for clinical practice and gave a score of 0 of 12 and urinary incontinence symptoms. He gave a score of 3 of 12 and urinary irritation symptoms. He gave a score of 1 of 12 and bowel symptoms. He gave a score of 7 of 12 in sexual symptoms. He gave a score of 4 of 12 in hormonal vitality symptoms. His total was 15 of 60. His energy levels are improved. Allergies Coded Allergies: Banana (Verified Allergy, Mild, RASH, SHIVERING,N/V, 05/15/17) NO KNOWN DRUG ALLERGIES (Verified Allergy, Unknown, ., 04/26/17) Home Medications Scheduled Aspirin (Aspirin Chewable), 81 MG PO QAM Dofetilide (Tikosyn), 1 CAP PO BID Multiple Vitamins W/ Minerals (Preservision Areds 2), 1 TAB PO BID Omeprazole (Prilosec), 40 MG PO QPM Simvastatin (Zocor), 20 MG PO HS Scheduled PRN Fluticasone Propionate (Nasal) (Flonase Allergy Relief), 1 SPRAY CINDY DAILY PRN for PRN Review of Systems Gastrointestinal: Symptoms: WNL Oral: Symptoms: No Problems Respiratory: Symptoms: WNL, SOB With Exertion Urinary: Symptoms: WNL, Nocturia Comments: Nocturia x 2-6, at times urgency, see AUA & EPIC Skin: Symptoms: No Problems Additional Notes: He completed a distress management report and answered "no" to all questions. Physical Exam Vital Signs Date Time Temp Pulse Resp B/P (MAP) Pulse Ox O2 Delivery O2 Flow Rate FiO2 12/11/17 14:46 36.4 59 16 114/69 96 ECOG Performance Status: 0 General Appearance: no apparent distress Eyes: normal inspection, EOMI ENT: normal ENT inspection, hearing grossly normal Respiratory/Chest: lungs clear, no respiratory distress, no accessory muscle use Cardiovascular: regular rate, rhythm, no gallop, no murmur Abdomen: non tender, soft, no organomegaly Extremities: no pedal edema Neurologic/Psychiatric: no motor/sensory deficits, alert, normal mood/affect Skin: warm/dry Lymphatic: no adenopathy Pain Management Patient Reports Pain: No Initial Pain Intensity: 0.0 Pain Management Plan He denies pain therefore requires no pain management. Laboratory Laboratory Results: were reviewed Laboratory Comments: He had a PSA December 07, 2017 and that was 2.0 Pathology Pathology Results: were reviewed, and pertinent findings noted in HPI Imaging Imaging Studies: were reviewed, and pertinent findings noted in HPI Assessment & Plan Plan: Continue regular follow-up with his primary care provider. I have asked him to see Dr. Kebede in 3 months. We asked him to return to our office in 6 months. An order was given for PSA prior to that visit. He will likely have a PSA prior to seeing Dr. Kebede. Today we reviewed the results of his PSA. He was seen also today by Dr. Barker. We completed the cancer survivorship care plan. A copy of the document was given to the patient. He was given a survivorship booklet. Please refer to the survivorship document to review late side effects. He may call our office if he has any questions or concerns in the interim. Assessment & Plan (Attending) I agree with note created by Marcela Bryant PA-C. I reviewed the patient's chart and information with her. I have examined and evaluated the patient. I reviewed relevant clinical information and answered the patient's and/or family' s questions. LIFE INSURANCE SPECIALIST Total Time In Follow-Up I spent 20 minutes speaking to the patient in performing examination. I spent 20 minutes reviewing information, preparing the survivorship document, and completing this note. [place] Total Time (Attending) In Follow-Up I spent 15 minutes examining and counseling the patient. LIFE INSURANCE SPECIALIST Copy To Adarsh Leahy M.D.; Carmen Kebede MD
== END | disposition home or self-care (01) ==
LOC: C.ONC 14:34
PROVIDERS: ATTEND Physician Assistant Medical
DX: Z08 Encounter for follow-up examination after completed treatment for malignant neoplasm (principal); Z92.3 Personal history of irradiation; Z85.46 Personal history of malignant neoplasm of prostate

== ENCOUNTER 2024-06-03 11:09 | Observation (INO) ==
--- NOTE | 2024-02-05 15:19 | PAT Medication Instructions ---
Medication Instructions Date of Service February 05, 2024 Home Medications Medication Instructions Recorded simvastatin 20 mg tablet 20 mg PO QPM #90 tabs 02/04/24 dofetilide 500 mcg capsule (Tikosyn) 500 mcg PO BID vitamins A,C,Q-leuk-hsgcdo 4,296 mcg-226 mg-90 mg capsule (PreserVision AREDS) 1 cap PO BID vitamin E (dl, acetate) 180 mg (400 unit) capsule 180 mg PO QAM leuprolide 1 mg/0.2 mL subcutaneous solution 0 mg subcut DIRECTED omeprazole 40 mg capsule,delayed release 40 mg PO QPM cholecalciferol (vitamin D3) 25 mcg (1,000 unit) tablet (Vitamin D3) 25 mcg PO QAM ibuprofen 200 mg tablet 400 - 600 mg PO Q8H PRN Pain simvastatin 20 mg tablet 20 mg PO QPM ASK your surgeon for instructions ibuprofen 200 mg tablet 400 - 600 mg PO Q8H PRN Pain ASK your prescriber and surgeon leuprolide 1 mg/0.2 mL subcutaneous solution 0 mg subcut DIRECTED STOP taking 2 weeks before surgery (or as soon as possible if surgery is within 2 weeks) vitamins A,C,U-qgcm-woyxhu 4,296 mcg-226 mg-90 mg capsule (PreserVision AREDS) 1 cap PO BID vitamin E (dl, acetate) 180 mg (400 unit) capsule 180 mg PO QAM DO NOT take the morning of surgery cholecalciferol (vitamin D3) 25 mcg (1,000 unit) tablet (Vitamin D3) 25 mcg PO QAM Take morning of surgery With a small sip of water, OTHERWISE NOTHING TO EAT OR DRINK AFTER MIDNIGHT: dofetilide 500 mcg capsule (Tikosyn) 500 mcg PO BID Take evening before surgery dofetilide 500 mcg capsule (Tikosyn) 500 mcg PO BID omeprazole 40 mg capsule,delayed release 40 mg PO QPM simvastatin 20 mg tablet 20 mg PO QPM Other Notes If you have any questions please call us at [phone] or [phone] or [phone] or [phone]
--- NOTE | 2024-02-14 12:57 | Anesthesiology Consultation ---
Date of Service February 14, 2024 Assessment & Plan (1) Encounter for pre-operative examination: Chart Review Chart Review: Acceptable Risk for Surgery (pending cardio clearance (currently 03/04/24)) and Patient seen in Pre Admission Testing - Discussed preop EKG with Dr. Leon- recommends cardio clearance prior to surgery. Patient only follows with [facility] Angelika EP- EP will not comment re:surgery. Will set up patient with [facility] Cardio - only opening at this time is 03/04/24 at 1000am. Patient aware of appt- will also enroll in fast pass program to get seen sooner if cancellations occur. Surgeon's office updated that at this time cardio clearance appt is day prior to surgery Per PAT appt on 02/14/24, no recent illness/disease exposures, illness related symptoms, or recent illness/disease positive tests. Will leave to surgeon's discretion if preop Covid testing needed Seen by cardio 10/01/23= seen for follow up on atrial fibrillation and atrial fl utter in the setting of correction dofetilide. Feels well today. Reviewed updated ECHO. EKG shows probably junctional rhythm. Recommend home enrollment Zio to assess for any underlying arrhythmia. Recommend checking BMP and MG in the setting of longer term dofetilide. 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 Follow up in six months (Patient never received Zio monitor) Teaching & Discussion Pre-Anesthesia Teaching/Discussion Notes: Instructed NPO after midnight before surgery,except medications with 15 cc of water. Medication instructions provided according to the PAT guidelines. History Surgery Operation Date: 03/05/24 12:20 Proposed Procedures p L4-L5 Posterior Lumbar Laminectomy - Edil Ye MD Height/Weight Height: 6 ft 2 in Weight: 94.1 kg Allergies Allergy/AdvReac Type Severity Reaction Status Date / Time banana Allergy Intermediate RASH, Verified 02/14/24 11:52 SHIVERING,N/V Medications Home Medications Medication Instructions Recorded Confirmed Last Taken dofetilide 500 mcg capsule 500 mcg PO BID 01/15/19 02/14/24 01/13/24 08:00 (Tikosyn) vitamins A,C,S-ckdh-amfvjf 4,296 1 cap PO BID 12/13/20 02/14/24 01/13/24 08:00 mcg-226 mg-90 mg capsule (PreserVision AREDS) vitamin E (dl, acetate) 180 mg 180 mg PO QAM 05/31/22 02/14/24 01/13/24 (400 unit) capsule leuprolide 1 mg/0.2 mL 0 mg subcut DIRECTED 01/13/24 02/14/24 Unknown subcutaneous solution omeprazole 40 mg capsule,delayed 40 mg PO QPM 01/13/24 02/14/24 01/13/24 release cholecalciferol (vitamin D3) 25 25 mcg PO QAM 02/04/24 02/14/24 Unknown mcg (1,000 unit) tablet (Vitamin D3) ibuprofen 200 mg tablet 400 - 600 mg PO Q8H PRN Pain 02/04/24 02/14/24 Unknown simvastatin 20 mg tablet 20 mg PO QPM #90 tabs 02/04/24 02/14/24 Unknown Past Medical History Medical History Arthritis Barretts esophagus Chronic sinusitis usually breaths through mouth per patient GERD (gastroesophageal reflux disease) well controlled and stable History of atrial fibrillation follows with [facility] cardio s/p MAZE procedure around 2008 On Xarelto in the past- stopped between [id number] for retinal bleed On long term care pharmacist dofetilide History of prostate cancer around 1996- surgery and radiation tx (now lupron injections) no chemo Hx of glaucoma Hyperlipidemia Joint pain in the shoulder/clavicle region receives cortisone injection every couple months Lung nodule being monitored Macular degeneration Spinal stenosis Exercise / Class Metabolic Activity II 4-5 Yardwork/Stairs/Walk up hill (one flight of stairs - no chest pain or SOB ) Past Family History Family History Brother Prostate cancer x 4 brothers Other No family history of adverse response to anesthesia Denies family history of Ovarian cancer Heart disease Myocardial infarction Breast cancer Colorectal cancer Hypertension Past Surgical History Surgical History Biceps tendon tear right>repaired H/O cardiac radiofrequency ablation 1999 H/O eye surgery to treat glaucoma>laser procedure H/O hernia repair History of back surgery lumbar surgery (no hardware) History of cataract surgery History of colonoscopy History of esophagogastroduodenoscopy (EGD) History of prostatectomy History of tonsillectomy History of tooth extraction Nasal polyps removed Past Anesthesia History No Hx of Anesthesia Complications and No Family Hx of Anesthesia Complications History of PONV No Hx of PONV and Hx of Motion Sickness Social History Smoking Status: Never smoker Do You Dip or Chew Tobacco: No Hx Alcohol Use: No substance use type: does not use Review of Systems - Chronic sinus congestion and drainage- coughs occasionally- present x 40 years - stable - Hx of snoring- questionable witnessed apnea - no hx of sleep study - Hx of blood transfusion with prostate surgery- (used own blood) Patient denies chest pain, shortness of breath, dyspnea on exertion, wheezing, palpitations. No hx of seizures, stroke, [place]. No hx of blood clots or blood transfusions Physical Exam Vital Signs VITALS BP 114/70 P 57 TEMP 97.5 SP02 96% RESP 16 Constitutional no acute distress ENMT Mouth: no TMJ clicking Thyromental Distance: > or= 3.5 Finger Breadths (3.5) Mallampati Class: I Missing molars Permanent bridges and caps to front teeth/molars Permanent implant to right side front tooth Neck + limited neck extension (significant) Respiratory normal respiratory effort; no respiratory distress Auscultation: lungs clear to auscultation bilaterally; no wheezes Cardiovascular Rate/Rhythm: regular rate and regular rhythm Heart Sounds: no murmur Vessels: no carotid bruit Occ extra beat Musculoskeletal Spine: no pain with cervical ROM Extremities: extremities normal to inspection Psychiatric Orientation: alert Lab Results Anesthesia Preop Results Results Anesthesia Widget: WBC 6.28 K/ul (4.8-10.8) 02/14/24 Hgb 12.4 g/dl (14.0-18.0) L 02/14/24 Hct 38.2 % (42.0-52.0) L 02/14/24 Plt 217 K/uL (130-400) 02/14/24 Na 137 mmol/L (136-145) 02/14/24 K 4.1 mmol/L (3.5-5.1) 02/14/24 Cl 102 mmol/L (98-107) 02/14/24 CO2 30 mmol/L (21-32) 02/14/24 BUN 26 mg/dl (6-23) H 02/14/24 Creat 0.85 mg/dl (0.6-1.4) 02/14/24 Glucose Level 121 mg/dl (70-99(Fasting)) H 02/14/24 PT 11.1 Seconds (9.0-12.0) 02/14/24 PTT 26 Seconds (21-31) 02/14/24 INR 1.0 (0.9-1.1) 02/14/24 Blood Type A Positive 02/14/24 Antibody Screen NEGATIVE 02/14/24 Testing Laboratory Results Mild anemia- workload FYI note sent to PCP to follow up as PCP discretion Electrocardiogram Date: 02/14/24 Unusual P axis, possible ectopic atrial bradycardia with PACs vs junctional rhythm vs competing sinus rhythm at 58bpm Prolonged QT When compared to EKG from Mar 30, 2016- ectopic atrial rhythm has replaced sinus rhythm per cardio Chest X-Ray Date: 02/14/24 FINDINGS: PA and lateral chest radiographs are compared to study dated 06/17/2018. A hiatal hernia is noted. The heart is enlarged noting atherosclerotic calcification of the thoracic aorta. The pulmonary vasculature is noncongested. Chronic interstitial thickening is previous. Scarring/atelectasis is noted in the lung bases. Fibrotic change is seen at the apices. No airspace consolidation typical for pneumonia or pleural effusion is identified. There is no pneumothorax. The skeletal structures are osteopenic. The bony thorax appears intact. Degenerative changes noted in the thoracic spine with evidence of DISH. IMPRESSION: 1. Cardiomegaly with no active disease in the chest. 2. Hiatal hernia. Echocardiogram Date: 03/02/23 EF: 55-59% LV Function: normal Other Findings: + LVH (borderline/concentric) LA severely enlarged RA moderately enlarged Mild AR. Mild TR Proximal ascending thoracic aorta is borderline enlarged.
--- NOTE | 2024-05-21 10:53 | PAT Medication Instructions ---
Medication Instructions Date of Service May 21, 2024 Home Medications Medication Instructions Recorded simvastatin 20 mg tablet 20 mg PO QPM #90 tabs 02/04/24 Continue as directed dofetilide 500 mcg capsule (Tikosyn) 500 mcg PO BID vitamins A,C,R-vmey-fvpmst 4,296 mcg-226 mg-90 mg capsule (PreserVision AREDS) 1 cap PO BID vitamin E (dl, acetate) 180 mg (400 unit) capsule 180 mg PO QAM leuprolide 1 mg/0.2 mL subcutaneous solution 0 mg subcut DIRECTED omeprazole 40 mg capsule,delayed release 40 mg PO QPM cholecalciferol (vitamin D3) 25 mcg (1,000 unit) tablet (Vitamin D3) 25 mcg PO QAM ibuprofen 200 mg tablet 400 - 600 mg PO Q8H PRN Pain simvastatin 20 mg tablet 20 mg PO QPM ASK your surgeon for instructions ibuprofen 200 mg tablet 400 - 600 mg PO Q8H PRN Pain ASK your prescriber and surgeon leuprolide 1 mg/0.2 mL subcutaneous solution 0 mg subcut DIRECTED STOP taking 2 weeks before surgery vitamins A,C,E-pdvv-lmayoo 4,296 mcg-226 mg-90 mg capsule (PreserVision AREDS) 1 cap PO BID vitamin E (dl, acetate) 180 mg (400 unit) capsule 180 mg PO QAM DO NOT take the morning of surgery cholecalciferol (vitamin D3) 25 mcg (1,000 unit) tablet (Vitamin D3) 25 mcg PO QAM Take morning of surgery With a small sip of water, OTHERWISE NOTHING TO EAT OR DRINK AFTER MIDNIGHT: dofetilide 500 mcg capsule (Tikosyn) 500 mcg PO BID Take evening before surgery dofetilide 500 mcg capsule (Tikosyn) 500 mcg PO BID omeprazole 40 mg capsule,delayed release 40 mg PO QPM simvastatin 20 mg tablet 20 mg PO QPM Other Notes If you have any questions please call us at [phone] or [phone] or or [phone]
--- NOTE | 2024-05-22 12:14 | Anesthesiology Consultation ---
Date of Service May 22, 2024 Assessment & Plan (1) Encounter for pre-operative examination: - Infectious disease screening: Per assessment on 05/22/24- No known recent infectious disease contacts or current infectious disease symptoms (does have chronic cough since illness/presumed Covid infection 03/2024 which is continuing to improve). Patient advised to contact surgeon/PAT if development of symptoms outside of baseline prior to surgery. - Patient seen by cardio 02/18/24: patient seen for preop cardiovascular exam. Patient with history of pAfib. Chronically on dofetilide. Seen last September- was in junctional rhythm at that time. Had planned for Ziopatch but patient never received monitor. Scheduled for lumbar laminectomy. Over the past three months, patient has had to slow down due to back issues. 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 Still able to walk about 1/10 of mile before pain stops him. Fatigue and lack of energy x months. Today's EKG shows SR with occasional PACs. No ischemic changes. Preoperative recommendations- patient has been quite active until recently. Denies anginal symptoms. Recommend no further testing. RCRI score predicts a low risk for perioperative CV event. Fatigue- prior episode of junctional rhythm. Will send out Ziopatch monitor- he should be finished wearing prior to his surgery. He is no syncopal. Cardio does not feel results of his testing should affect surgery. A fib- controlled on medication- refer back to EP clinic. - Patient seen by PCP 03/13/24: Patient seen for preop for back surgery. Chronic LBP- since August 2023- scheduled for laminectomy 03/18/24. Cleared by cardiology as low risk. Fall- patient fell 03/05/24 and bumped back of head on corner of concrete wall and fell on right buttock. Still have pain as of 03/13/24. R ecommend x rays of lumbar spine and pelvis as well as head CT. PCP awaiting results from head CT prior to final preop clearance. Head injury - swelling to right occiput- improved from previous per patient. Otherwise asymptomatic. Hx of a fib- follows with cardio- stable. GERD/Barretts/large hiatal hernia- continue current meds. HLD. Prostate cancer - follows with oncology. Macular dege neration- follows with eye doctor. Lung nodules- follows with pulm. * Head CT 03/13/24= No acute intracranial hemorrhage or skull fractures. Scalp swelling is seen in the right occipital soft tissues. * Lumbar spine x ray 03/13/24= Degenerative changes as above without acute fracture or subluxation. * Hip/Pelvis x ray 03/13/24= No fractures within the pelvis or hips. Moderate bilateral hip osteoarthritis. - PCP addendum note 03/17/24: "03-13-24 CT Head: No acute intracranial hemorrhage or skull fractures. Scalp swelling is seen in the right occipital soft tissues. patient cleared as a low risk for surgery" - Cardiology visit 03/31/24: "Patient presenting for routine electrophysiology evaluation in the setting of dofetilide use for suppression of atrial fibrillation and atrial flutter.. On Zio, patient's heart rate is very flat and likely some of his fatigue may be in the setting of low heart rate from dofetilide.. Patient given options of doing nothing/watchful waiting, stopping dofetilide and evaluating heart rate response, however this could trigger arrhythmia recurrence, ablation for atrial fibrillation so that dofetilide can be discontinued, or placement of PPM for chronotropic incompetence related to dofetilide use. Placement of PPM would allow for liberal use of dofetilide for arrhythmia suppression.. At this point, patient would like to pursue watchful waiting approach and continue dofetilide as currently prescribed.. EKG today shows NSR with PAC's (60) (unconfirmed).. No medication changes at this time.." Chart Review Chart Review: Acceptable Risk for Surgery and Patient seen in Pre Admission Testing Teaching & Discussion Pre-Anesthesia Teaching/Discussion Notes: Instructed NPO after midnight before surgery,except medications with 15 cc of water. Medication instructions provided according to the PAT guidelines. History Surgery Operation Date: 03/05/24 12:20 Proposed Procedures p L4-L5 Posterior Lumbar Laminectomy - Edil Ye MD Operation Date: 06/03/24 12:50 Proposed Procedures p L4-L5 Posterior Lumbar Laminectomy - Edil Ye MD Height/Weight Height: 6 ft 2 in Weight: 94.1 kg Allergies Allergy/AdvReac Type Severity Reaction Status Date / Time banana Allergy Intermediate Rash, Verified 05/22/24 13:08 shivering, N/V Medications Home Medications Medication Instructions Recorded Confirmed Last Taken dofetilide 500 mcg capsule 500 mcg PO BID 01/15/19 05/19/24 01/13/24 08:00 (Tikosyn) vitamins A,C,O-axmo-ajgizj 4,296 1 cap PO BID 12/13/20 05/19/24 01/13/24 08:00 mcg-226 mg-90 mg capsule (PreserVision AREDS) vitamin E (dl, acetate) 180 mg 180 mg PO QAM 05/31/22 05/19/24 01/13/24 (400 unit) capsule leuprolide 1 mg/0.2 mL 0 mg subcut DIRECTED 01/13/24 05/19/24 Unknown subcutaneous solution omeprazole 40 mg capsule,delayed 40 mg PO QPM 01/13/24 05/19/24 01/13/24 release cholecalciferol (vitamin D3) 25 25 mcg PO QAM 02/04/24 05/19/24 Unknown mcg (1,000 unit) tablet (Vitamin D3) ibuprofen 200 mg tablet 400 - 600 mg PO Q8H PRN Pain 02/04/24 05/19/24 Unknown simvastatin 20 mg tablet 20 mg PO QPM #90 tabs 02/04/24 05/19/24 Unknown Past Medical History Medical History Arthritis Chronic anemia Chronic back pain Chronic sinusitis "Mouth breathing" Dyslipidemia GERD (gastroesophageal reflux disease) History of atrial fibrillation Follows with [facility] s/p MAZE procedure around 2008 On Xarelto in the past- stopped between 4931-2603 for retinal bleed On senior care dofetilide History of Bhatt's esophagus History of COVID-19 Middle 03/2024- tested positive, patient never tested but "had same symptoms" History of prostate cancer Around 1996- surgery and radiation tx (now lupron injections) no chemo Hx of glaucoma Joint pain in the shoulder/clavicle region Receives cortisone injection every couple months Knee pain, bilateral recent cortisone injections to bilat knees 05/2024 Lung nodule being monitored Macular degeneration Spinal stenosis Exercise / Class Metabolic Activity III < 4 Walking/Shop/Light housework Past Family History Family History Brother Prostate cancer x 4 brothers Other No family history of adverse response to anesthesia Denies family history of Ovarian cancer Heart disease Myocardial infarction Breast cancer Colorectal cancer Hypertension Past Surgical History Surgical History Biceps tendon tear right>repaired H/O cardiac radiofrequency ablation 1999 H/O eye surgery to treat glaucoma>laser procedure H/O hernia repair History of cataract surgery History of colonoscopy History of esophagogastroduodenoscopy (EGD) History of lumbar laminectomy Right L3-4 History of prostatectomy History of tonsillectomy History of tooth extraction Nasal polyps removed Past Anesthesia History No Hx of Anesthesia Complications and No Family Hx of Anesthesia Complications History of PONV No Hx of PONV and Hx of Motion Sickness (Seasickness on "small boats") Social History Smoking Status: Never smoker Do You Dip or Chew Tobacco: No Hx Alcohol Use: No Hx Substance Use: No substance use type: does not use Review of Systems Patient denies chest pain, shortness of breath, fever, chills, wheezing, palpitations. Physical Exam Vital Signs BP 112/62 P 55 TEMP 98.1 SP02 95%RA RESP 16 Physical Significantly decreased cervical extension range of motion. Full TMJ range of motion. TMD > 3.5 finger breaths Mallampati Score I Dentition: missing molars, +caps/crowns Lungs: clear throughout to auscultation Cardiac: regular rate and rhythm, no murmurs noted Spine: normal Carotid arteries: negative bruit Extremities: no LE edema Lab Results Anesthesia Preop Results Results Anesthesia Widget: WBC 8.76 K/ul (4.8-10.8) 05/22/24 Hgb 13.3 g/dl (14.0-18.0) L 05/22/24 Hct 40.2 % (42.0-52.0) L 05/22/24 Plt 275 K/uL (130-400) 05/22/24 Na 139 mmol/L (136-145) 05/22/24 K 4.4 mmol/L (3.5-5.1) 05/22/24 Cl 105 mmol/L (98-107) 05/22/24 CO2 28 mmol/L (21-32) 05/22/24 BUN 31 mg/dl (6-23) H 05/22/24 Creat 1.01 mg/dl (0.6-1.4) 05/22/24 Glucose Level 91 mg/dl (70-99(Fasting)) 05/22/24 PT 10.7 Seconds (9.0-12.0) 05/22/24 PTT 24 Seconds (21-31) 05/22/24 INR 1.0 (0.9-1.1) 05/22/24 Blood Type A Positive 05/22/24 Antibody Screen NEGATIVE 05/22/24 Testing Electrocardiogram Date: 03/31/24 SR with PACs at 60bpm. Chest X-Ray Date: 02/14/24 FINDINGS: PA and lateral chest radiographs are compared to study dated 06/17/2018. A hiatal hernia is noted. The heart is enlarged noting atherosclerotic calcification of the thoracic aorta. The pulmonary vasculature is noncongested. Chronic interstitial thickening is previous. Scarring/atelectasis is noted in the lung bases. Fibrotic change is seen at the apices. No airspace consolidation typical for pneumonia or pleural effusion is identified. There is no pneumothorax. The skeletal structures are osteopenic. The bony thorax appears intact. Degenerative changes noted in the thoracic spine with evidence of DISH. IMPRESSION: Cardiomegaly with no active disease in the chest. Hiatal hernia. Echocardiogram Date: 03/02/23 EF: 55-59% LV Function: normal Other Findings: + LVH (borderline/concentric) LA severely enlarged RA moderately enlarged Mild AR. Mild TR Proximal ascending thoracic aorta is borderline enlarged. Other Testing patient monitor Date: 02/18/24 REASON FOR STUDY: bradycardia, junctional rhyhtm;14 days CONCLUSIONS: Final Interpretation the underlying rhythm was predominantly sinus. Supraventricular ectopy burden was 8.6%. Few brief asymptomatic runs of supraventricular tachycardia were recorded Preliminary Findings Patient had a min HR of 45 bpm, max HR of 169 bpm, and avg HR of 60 bpm. Predominant underlying rhythm was Sinus Rhythm. First Degree AV Block was present. Slight P wave morphology changes were noted. 3 Ventricular Tachycardia runs occurred, the run with the fastest interval lasting 4 beats with a max rate of 169 bpm, the longest lasting 5 beats with an avg rate of 151 bpm. 85 Supraventricular Tachycardia runs occurred, the run with the fastest interval lasting 5 beats with a max rate of 169 bpm, the longest lasting 20.5 secs with an avg rate of 100 bpm. Isolated SVEs were frequent (8.6%, [id number]), SVE Couplets were rare (<1.0%, 3426), and SVE Triplets were rare (<1.0%, 937). Isolated VEs were rare (<1.0%, 1433), VE Couplets were rare (<1.0%, 36), and VE Triplets were rare (<1.0%, 3). Ventricular Bigeminy was present. Head CT Date: 03/13/24 Findings: The ventricles, basal cisterns, and cerebral sulci are normal. There is no acute intracranial hemorrhage or evidence of acute territorial infarction. Neither mass effect, shift of the midline structures, nor abnormal extra-axial fluid collections are shown. Imaged portions of the paranasal sinuses and mastoid air cells are clear. The orbits appear normal. There are no acute fractures of the calvaria. Scalp swelling is seen in the right occipital soft tissue. Impression: No acute intracranial hemorrhage or skull fractures. Scalp swelling is seen in the right occipital soft tissues.
[~2024-06-03 11:09] MED LIST changes: -ASPCH81X PO; +ATROPINE SULFATE 0.1 MG/ML 10ML SYR IV PRN; +DEXAMETHASONE SOD INJ 4 MG/ML VIAL ONE; -DOFE500C PO; -FLUT0.15 NAE; +GABAPENTIN 300 MG CAP PO SCH; +LACTATED RINGER'S 500 ML IV SCH; +LIDOCAINE 2% 2 ML VIAL/AMP(20MG/ML) INFIL ONE; +LR 15ML/HR IV SCH; +LR 60ML/HR IV SCH; -MULT60CA PO; -OMEP40CA41 PO; +ONDANSETRON INJ 2 MG/ML 2 ML VIAL IV PRN; +ONDANSETRON INJ 2 MG/ML 2 ML VIAL ONE; +PROPOFOL IV EMULSION 10 MG/ML 20 ML VIAL IV ONE; -PSYL48.59; +ROCURONIUM BROMIDE 10 MG/ML 5 ML VIAL IV ONE; -SIMV20TA2 PO; +ceFAZolin 2000MG 2,000 MG/15 ML SYR IV SCH; +ePHEDrine sulfate 50 MG/ML AMP IV PRN; +fentaNYL citrate PF 100 MCG/2 ML VIAL ONE
[2024-06-03] MEDS: LR 60ML/HR IV SCH (11:41)
[2024-06-03] MEDS: GABAPENTIN 300 MG CAP PO SCH (11:41)
[2024-06-03] MEDS: LR 15ML/HR IV SCH (11:50)
--- NOTE | 2024-06-03 13:37 | History & Physical Report ---
Date of Service June 03, 2024 History of Present Illness Chief Complaint: lumbar radiculopathy, lumbar stenosis Primary Care Provider: Danilo Galvin, 83-year-old patient returns for follow-up, he was initially seen in December, we had a discussion about potential decompression at the L4-5 level due to stenosis and a facet cyst. At that time though he was still walking considerable distances without issue and baling hay other activities. At some point though he went to a chiropractor and since then he started developing more symptoms down his right leg with radiculopathy, also noting that the distance he can walk now is only about 5 minutes and he has to sit and rest, and with this he will improve and then begin walking again. Exam reveals not to have any focal weakness but a positive straight leg raise on the right side. Review of MRI images about the lumbar spine from December 19, 2023, this reveals him to have had prior surgery at L3-4 and right with a hemilaminotomy, notable loss of disc space height, the prominent findings. L4-5 with there is a right- sided facet cyst along with thickened ligamentum flavum causing severe stenosis. 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 Plan: Today I spent a fair amount of time talking with the patient minimum 30 minutes and in his time. I also reviewed the MRI images with him and his this time around going over the findings at the L4-5 level. I relayed to the patient that he still could pursue additional conservative measures if he would be inclined, such as injections and physical therapy but with the amount of stenosis he has and facet cyst I think they would be limited in their ability to cause any sustained relief. I did relate he would be appropriate surgical candidate, I recommended a lumbar decompression at the L4-5 level with also removal of facet cyst. Discussed was the hospital and postoperative course, postoperative limitations, potential risks were discussed which included but not exclusive to chance of infection, neurologic injury, recurrence of the facet cyst, medical risks. I did relate a discussion about the fact that the facet cyst could recur, the only way to address that would then be an arthrodesis, but at this time I think it be reasonable and appropriate to continue with the o peration as noted. They are in agreement with this plan we will see the patient scheduled at some point in near future with follow-up 2 weeks later, they are in agreement with this plan. Allergies Allergy/AdvReac Type Severity Reaction Status Date / Time banana Allergy Intermediate Rash, Verified 06/03/24 11:38 shivering, N/V Home Medications Medication Instructions Recorded Confirmed Type dofetilide 500 mcg capsule 500 mcg PO BID 01/15/19 06/03/24 History (Tikosyn) vitamins A,C,E-pero-oijbue 4,296 1 cap PO BID 12/13/20 06/03/24 History mcg-226 mg-90 mg capsule (PreserVision AREDS) vitamin E (dl, acetate) 180 mg 180 mg PO QAM 05/31/22 06/03/24 History (400 unit) capsule leuprolide 1 mg/0.2 mL 0 mg subcut DIRECTED 01/13/24 06/03/24 History subcutaneous solution omeprazole 40 mg capsule,delayed 40 mg PO QPM 01/13/24 06/03/24 History release cholecalciferol (vitamin D3) 25 25 mcg PO QAM 02/04/24 06/03/24 History mcg (1,000 unit) tablet (Vitamin D3) ibuprofen 200 mg tablet 400 - 600 mg PO Q8H PRN Pain 02/04/24 06/03/24 History simvastatin 20 mg tablet 20 mg PO QPM #90 tabs 02/04/24 06/03/24 Rx Past Med/Surg History Problem List Degenerative arthritis of knee, bilateral Encounter for pre-operative examination History of lumbar laminectomy for spinal cord decompression Stenosis, spinal, lumbar Cyst of lumbar facet joint Lumbar radiculopathy, right Lumbar spondylosis Left knee DJD Inhibited sexual excitement Dyslipidemia Bhatt's esophagus Rotator cuff tear arthropathy of both shoulders GERD (gastroesophageal reflux disease) Vitamin D deficiency Radiculopathy, cervical Malignant neoplasm of prostate (Chronic) Macular degeneration Medical History Arthritis Chronic anemia Chronic back pain Chronic sinusitis "Mouth breathing" Dyslipidemia GERD (gastroesophageal reflux disease) History of atrial fibrillation Follows with [facility] s/p MAZE procedure around 2008 On Xarelto in the past- stopped between 1773-2030 for retinal bleed On [employer] dofetilide History of Bhatt's esophagus History of COVID-19 Middle 03/2024- tested positive, patient never tested but "had same symptoms" History of prostate cancer Around 1996- surgery and radiation tx (now lupron injections) no chemo Hx of glaucoma Joint pain in the shoulder/clavicle region Receives cortisone injection every couple months Knee pain, bilateral recent cortisone injections to bilat knees 05/2024 Lung nodule being monitored Macular degeneration Spinal stenosis Surgical History Biceps tendon tear right>repaired H/O cardiac radiofrequency ablation 1999 H/O eye surgery to treat glaucoma>laser procedure H/O hernia repair History of cataract surgery History of colonoscopy History of esophagogastroduodenoscopy (EGD) History of lumbar laminectomy Right L3-4 History of prostatectomy History of tonsillectomy History of tooth extraction Nasal polyps removed Family History Brother Prostate cancer x 4 brothers Other No family history of adverse response to anesthesia Denies family history of Ovarian cancer Heart disease Myocardial infarction Breast cancer Colorectal cancer Hypertension Social History Smoking Status: Never smoker Second Hand Exposure: No; Do You Dip or Chew Tobacco: No; Tobacco Cessation Education Requested by Patient: No Hx Alcohol Use: No Hx Substance Use: No Preferred Language: Bulgarian Communication Ability: Effective Communication Ability Comment: vision impaired> uses magnifier Visual Impairment: Limited Hearing Ability: Normal [employer] Required: No Beliefs That Will Affect Care: None marital status: Current Living Situation: Spouse current occupational status: employed current occupation: self employed How many Children do You have: 2 Other Information That Helps Us Care for You: No Feels Safe at Home: Yes Safety Concerns: Feels Safe At This Time Childhood Exposure to Second-Hand Smoke: No Diet: regular Diet Comment: Trys to avoid sugar as much as possible. caffeine: Yes during the past year weight has: remained stable Dental Care, Regularly: Yes Physical Activity Frequency: Daily Seatbelt Use: always Sunscreen Use: Yes Do you think of yourself as: straight/heterosexual Gender Identity: Male Assistive Devices: Glasses Assistive Devices Comment: uses a magnifier Results & Data Results & Data Vital Signs (Past 12 Hours) Vital Signs Temp Pulse Resp BP Pulse Ox O2 Del Method 06/03/24 11:32 36.5 C 56 L 18 138/81 98 Room Air
--- NOTE | 2024-06-03 14:01 | History & Physical Bridge Note ---
Date of Service June 03, 2024 History & Physical Bridge Note I have examined the patient, reviewed the History & Physical and in the interval since the performance of the History & Physical I have noted the following changes of clinical significance: no changes noted
[2024-06-03] MEDS: ceFAZolin 2000MG 2,000 MG/15 ML SYR IV SCH (14:05)
[2024-06-03] MEDS ORDERED: GLYCOPYRROLATE 0.2 MG/ML VIAL ONE (14:30)
[2024-06-03] MEDS ORDERED: ePHEDrine sulfate 50 MG/ML AMP ONE (14:32)
[2024-06-03] MEDS ORDERED: PHENYLEPHRINE 100MCG/ML 5ML SYR ONE (14:57)
[2024-06-03] MEDS ORDERED: ROCURONIUM BROMIDE 10 MG/ML 5 ML VIAL IV ONE (15:00)
[2024-06-03] MEDS ORDERED: SUGAMMADEX SODIUM 200 MG/2 ML VIAL IV ONE (15:17)
[2024-06-03] MEDS: VANCOMYCIN HCL 1000MG/20ML VIAL ONE (15:21)
[2024-06-03] MEDS: THROMBIN 5000 UNITS KIT ONE (16:09)
[2024-06-03] MEDS: GELATIN SPONGE 12-7MM ONE (16:09)
[2024-06-03] MEDS: FLOSEAL HEMOSTATIC MATRIX 10ML TOP ONE (16:16)
[2024-06-03] MEDS: BUPIVACAINE/EPINEPHRINE 0.5% MPF 1:200,000 30 ML VIAL ONE (16:16)
[2024-06-03] MEDS ORDERED: LORazepam 2 MG/1 ML VIAL IV PRN (16:37)
[2024-06-03] MEDS ORDERED: ACETAMINOPHEN 1,000 MG/100 ML VIAL IV PRN (16:37)
[2024-06-03] MEDS ORDERED: MAGNESIUM HYDROXIDE SUSP 30 ML UDC PO PRN (16:37)
[2024-06-03] MEDS ORDERED: ONDANSETRON INJ 2 MG/ML 2 ML VIAL IV PRN (16:37)
[2024-06-03] MEDS ORDERED: DO NOT ADMINISTER PNEUMOCOCCAL VACCINE PRN (16:37)
[2024-06-03] MEDS ORDERED: NALOXONE HCL 0.4 MG/1 ML VIAL/CARP IV PRN (16:37)
[2024-06-03] MEDS ORDERED: hydrOXYzine HCl 25 MG TAB PO PRN (16:37)
[2024-06-03] MEDS ORDERED: METOCLOPRAMIDE HCL INJ 5 MG/ML 2 ML VIAL IV PRN (16:37)
[2024-06-03] MEDS ORDERED: DO NOT ADMINISTER FLU VACCINE PRN (16:37)
[2024-06-03] MEDS ORDERED: PROMETHAZINE 12.5 MG/50.5 ML BAG IV PRN (16:37)
[2024-06-03] MEDS ORDERED: FAMOTIDINE 20 MG TAB PO PRN (16:37)
[2024-06-03] MEDS ORDERED: HYDROmorphone INJ 0.5 MG/0.5 ML SYR IV PRN (16:37)
[2024-06-03] MEDS ORDERED: LORazepam 0.5 MG TAB PO PRN (16:37)
[2024-06-03] MEDS ORDERED: bisacodyL 10 MG SUPP PR PRN (16:37)
[2024-06-03] MEDS ORDERED: SOD PHOSPHATE/SOD BIPHOSPHATE ENEMA 132 ML BTL PR PRN (16:37)
[2024-06-03] MEDS ORDERED: diphenhydrAMINE Capsule 25 MG CAP PO PRN (16:37)
[2024-06-03] MEDS ORDERED: oxyCODONE/ACETAMINOPHEN 5mg/325mg TAB PO PRN (16:37)
[2024-06-03] MEDS ORDERED: ONDANSETRON 4 MG OD TAB PO PRN (16:37)
--- NOTE | 2024-06-03 16:37 | Post Operative Brief Note ---
PG Immediate Post Op with CF Date of Surgery June 03, 2024 Pre & Post Diagnosis Operation Date: 06/03/24 12:50 Pre-Op Diagnosis: Lumbar radiculopathy, lumbar stenosis Post-Op Diagnosis: Lumbar radiculopathy, lumbar stenosis I identified the patient and participated in the time-out.: Yes Procedure Operation Date: 06/03/24 12:50 Actual Procedures p L4-L5 Posterior Lumbar Laminectomy(Not Applicable) - Edil Ye MD Surgeon Edil Ye MD Hanging Flags Decorator kwadwo Ojeda Estimated Blood Loss 10 Findings Consistent with Post-Op Diagnosis Specimens Specimen Description: None per surgeon
--- NOTE | 2024-06-03 16:54 | Anesthesiology Progress Note ---
Date of Service June 03, 2024 Anesthesia Post Procedure Vital Signs Vital Signs: Temp Pulse Pulse Resp BP Pulse Ox O2 Del Method 06/03/24 16:50 78 12 142/80 H 100 Oxymask 06/03/24 16:40 36.1 C L 67 14 159/86 H 98 Oxymask 06/03/24 11:32 36.5 C 56 L 18 138/81 98 Room Air O2 Flow Rate 06/03/24 16:50 3 06/03/24 16:40 6 06/03/24 11:32 Transfer of Care Handoff Completed per policy Notes Mental Status: alert / awake / arousable and participated in evaluation Patient Amnestic to Procedure: Yes Nausea / Vomiting: adequately controlled Pain: adequately controlled Airway Patency, RR, SpO2: stable & adequate BP & HR: stable & adequate Hydration State: stable & adequate Anesthetic Complications: no major complications apparent and Pt Satisfied with anesthetic care
[2024-06-03] MEDS: fentaNYL citrate PF 100 MCG/2 ML VIAL IV PRN (17:03)
[2024-06-03] MEDS: HYDROmorphone INJ 1 MG/ML SYRINGE IV PRN (17:25)
[2024-06-03] MEDS: COUGH DROP (SUGAR FREE) LOZ 24 LOZ/1 BOX BUCCAL ONE (18:33)
[2024-06-03] MEDS: DOFETILIDE 125 MCG CAPSULE PO SCH (20:19)
[2024-06-03] MEDS: PANTOprazole 40 MG TAB PO SCH (20:20)
[2024-06-03] MEDS: ACETAMINOPHEN 500 MG TAB PO PRN (20:22)
[2024-06-03] MEDS: DOCUSATE SODIUM/SENNA 50/8.6MG TAB PO SCH (20:22)
[2024-06-03] MEDS: ceFAZolin 1000MG 1,000 MG/7.5 ML SYR IV SCH (23:16)
[2024-06-04] MEDS: ALUMINUM/MAGNESIUM SUSP 30 ML UDC PO PRN (00:59)
[2024-06-04 03:07] VITALS: O2SAT 96
[2024-06-04] MEDS: POLYETHYLENE (MIRALAX) 17 GM PACK PO SCH (05:23)
--- NOTE | 2024-06-04 07:51 | Fluoroscopy Report ---
FL spine 1V any level CLINICAL HISTORY: L4-L5 POSTERIOR LUMBAR INTERBODY COMPARISON STUDY: Lumbar spine MRI December 19, 2023. Lumbar spine radiographs March 13, 2024. FLUOROSCOPY TIME: 25 seconds. FLUOROSCOPIC IMAGES: 2 FINDINGS: Two intraoperative fluoroscopic images were submitted for interpretation. These demonstrate surgical retractors and a surgical instrument directed over the canal at the inferior L4 level. IMPRESSION: Fluoroscopy provided during intraoperative localization of the L4-L5 level. ACT 112: Negative or not required by law. Electronically signed by: Jose Reeder M.D. 06/04/2024 7:50 AM
[2024-06-04 08:03] VITALS: BP 134/82; PULSE 60; RESP 18; TEMP 98.1
--- NOTE | 2024-06-04 11:22 | Discharge Summary ---
Date of Service June 04, 2024 Admission HPI Per Admitting Provider 06/03/24: 83-year-old patient returns for follow-up, he was initially seen in December, we had a discussion about potential decompression at the L4-5 level due to stenosis and a facet cyst. At that time though he was still walking considerable distances without issue and baling hay other activities. At some point though he went to a chiropractor and since then he started developing more symptoms down his right leg with radiculopathy, also noting that the distance he can walk now is only about 5 minutes and he has to sit and rest, and with this he will improve and then begin walking again. Review of MRI images about the lumbar spine from December 19, 2023, this reveals him to have had prior surgery at L3-4 and right with a hemilaminotomy, notable loss of disc space height, the prominent findings. L4-5 with there is a right- sided facet cyst along with thickened ligamentum flavum causing severe stenosis. 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 Plan: Today I spent a fair amount of time talking with the patient minimum 30 minutes and in his time. I also reviewed the MRI images with him and his this time around going over the findings at the L4-5 level. I relayed to the patient that he still could pursue additional conservative measures if he would be inclined, such as injections and physical therapy but with the amount of stenosis he has and facet cyst I think they would be limited in their ability to cause any sustained relief. I did relate he would be appropriate surgical candidate, I recommended a lumbar decompression at the L4-5 level with also removal of facet cyst. Discussed was the hospital and postoperative course, postoperative limitations, potential risks were discussed which included but not exclusive to chance of infection, neurologic injury, recurrence of the facet cyst, medical risks. I did relate a discussion about the fact that the facet cyst could recur, the only way to address that would then be an arthrodesis, but at this time I think it be reasonable and appropriate to continue with the operation as noted. They are in agreement with this plan we will see the patient scheduled at some point in near future with follow-up 2 weeks later, they are in agreement with this plan. Admission Exam (Per Admitting) Musculoskeletal 11/09/23: Exam reveals him to indicate pain in the area as noted, he can raise up on toes and heels easily with no weakness. While sitting he had what I would consider 1/4 knee reflexes absent ankle reflexes negative straight leg raise bilaterally intact motor strength overall. 06/03/24: Exam reveals not to have any focal weakness but a positive straight leg raise on the right side. Discharge Data Procedures Performed Operation Date: 06/03/24 12:50 Actual Procedures p L4-L5 Posterior Lumbar Laminectomy(Not Applicable) - Edil Ye MD Hospital Course (1) History of lumbar laminectomy for spinal cord decompression: Pt seen and examined, some incisional pain but out of bed and ambulating. N/V intact. Plan: DC home today with follow up in 2 weeks. Plan On June 03, 2024 [facility] arrived at [facility] operating room and underwent an L4-L5 Posterior Lumbar Laminectomy without complications. Patient had general anesthesia for the procedure. Patient was admitted to the general orthopedic floor in stable condition postoperatively for pain control and mobilization with physical therapy; they safely and properly performed the ADL tasks demonstrated by PT/OT and met all goals. Pain was controlled with oral medications. Normal return of bowel and bladder function. They worked with therapy, vital signs were acceptable, no need for transfusion, deemed safe for discharge. Patient was then discharged home in stable condition, with self-care and assistance from his . Patient will follow-up with Dr. Ye in the orthospine clinic in approximately 2 weeks, as scheduled, for postoperative care.
--- NOTE | 2024-06-04 13:32 | Orthopedic Progress Note ---
Date of Service June 04, 2024 Subjective Pt seen and examined, some incisional pain but out of bed and ambulating. N/V intact. Plan: DC home today with follow up in 2 weeks. Review of Systems All systems reviewed & are unremarkable except as noted in HPI & below. Physical Exam . Results & Data Results & Data Laboratory Results . Diagnostic Findings . PG Care Time/CCT Total # of Minutes Spent Total Time Spent with Patient: Total time spent is greater than 50% in coordination of care (as documented) at patient's floor/unit and/or counseling patient: Coding Level of Care Code 36603 Post Operative Follow-Up
--- NOTE | 2024-06-04 15:40 | Operative Report ---
PG Post Operative Report Pre & Post Diagnosis Operation Date: 06/03/24 12:50 Pre-Op Diagnosis: Lumbar radiculopathy, lumbar stenosis Post-Op Diagnosis: Lumbar radiculopathy, lumbar stenosis I identified the patient and participated in the time-out.: Yes Procedure Operation Date: 06/03/24 12:50 Actual Procedures p L4-L5 Posterior Lumbar Laminectomy(Not Applicable) - Edil Ye MD Surgeon Edil Ye MD [employer] kwadwo Ojeda Estimated Blood Loss 10 Findings Consistent with Post-Op Diagnosis Specimens none Description of Procedure 1. L4-5 posterior lumbar laminectomy/decompression. (88632) Patient was taken operating room after adequate anesthesia was carefully positioned prone on the Kam frame. Preprepped was performed followed by utilization of fluoroscopy to obi for the location of the incision, prep and drape. Midline incision was performed over the spinous processes at the L4-5 interspace and advanced down to expose the interlaminar region at L4-5 bilaterally, the location was confirmed fluoroscopically. I began the decompression with removal of the inferior aspect the spinous process of L4 and advanced down to the interlaminar region where I then mobilized the thickened ligamentum flavum and thinned this, followed by utilization high-speed bur to performed bilateral hemilaminectomy partial medial facetectomy. This also included across the superior laminar edge of L5, and this process continued to the thin ligamentum flavum could then be removed after mobilization utilizing combination of curettes and Kerrison punches. This process continued out undercutting the facets bilaterally, then I moved up more so on the right side along the inferior laminar edge to expose the region of the facet cyst which was then thinned and removed, fluoroscopic images were utilized to confirm the location of the decompression and area decompressed with the surgical procedure. Upon conclusion of the debridement and decompression bilaterally exposing the dura and decompressing the exiting nerve roots bilaterally, irrigation was performed. No issues were noted, I placed vancomycin powder along with some local in the operative region followed by closure using 0 Vicryl sutures 2-0 Vicryl sutures and jerica for the skin. The physician nurse assistant was present for participated in all aspects of the surgical procedure. I attest to the content of the Intraoperative Record and any orders documented therein. Any exceptions are noted below.
== END 2024-06-04 13:49 | disposition home or self-care (01) ==
LOC: ASU 11:09 → 3E 11:09